=== PATIENT | female | born 1980 | race Hispanic/Latino ===

== ENCOUNTER 2020-06-14 00:01 | Emergency (ER) | payer OTHER ==
[2020-06-14 01:10] LABS: BASOPHILS % (AUTO) 0.2 % (0.0-5.0); EOSINOPHILS % (AUTO) 1.6 % (0.0-8.0); HEMATOCRIT 38.2 % (36-48); LYMPHOCYTES % (AUTO) 45.1 % (21.0-51.0); MEAN CORPUSCULAR HEMOGLOBIN 29.4 pg (27.0-33.0); MONOCYTES % (AUTO) 6.5 % (3.0-13.0); NEUTROPHILS % (AUTO) 46.4 % (40.0-77.0); PLATELET COUNT (AUTO) 150 K/uL (130-400); RED BLOOD CELL COUNT(AUTO) 4.29 MIL/uL (4.00-5.50); RED CELL DISTRIBUTION WIDTH 12.9 % (11.0-15.5); WHITE BLOOD COUNT (AUTO) 6.1 K/uL (4.8-10.8)
[2020-06-14 01:20] LABS: CREATININE 0.8 mg/dL (0.5-1.5)
[2020-06-14 01:25] LABS: ALBUMIN 3.3 g/dL (3.5-5.0); BILIRUBIN,TOTAL 0.2 mg/dL (0.2-1.0); TOTAL PROTEIN, SERUM 7.1 g/dL (6.0-8.3)
[2020-06-14 01:32] LABS: INR 0.97 (0.85-1.15); PARTIAL THROMBOPLASTIN TIME 22.8 SEC (26.3-35.5); PROTHROMBIN TIME 10.1 SEC (9.6-11.6)
[2020-06-14] MEDS ORDERED: LACTATED RINGERS 1000ML 1,000 ML IV ONE (01:55)
[2020-06-14] MEDS ORDERED: ONDANSETRON HCL 4 MG/2 ML VIAL ONE (01:55)
[2020-06-14] MEDS ORDERED: POTASSIUM CHLORIDE 20 MEQ ERTAB PO ONE (02:00)
[2020-06-14 02:33] LABS: CRP QUANTITATIVE 3.2 mg/L (0.00-9.0)
[2020-06-14] MEDS ORDERED: DEXAMETHASONE SOD PHOSPHATE 10MG/ML 1ML VIAL ONE (03:06)
== END 2020-06-14 04:03 | disposition home or self-care (01) ==
LOC: EDH 00:01
DX: U07.1 COVID-19 (principal); J18.9 Pneumonia, unspecified organism; E87.6 Hypokalemia
CPT/HCPCS: 36415; 71045; 80053; 82550; 83605; 84484; 84702; 85025; 85378; 85610; 85730; 86140; 93005; 96361; 96374; 96375; 99285; J1100; J2405; J7120